=== PATIENT | female | born 1950 | race Caucasian/White ===

== ENCOUNTER 2016-11-26 11:04 | Observation (INO) | payer OTHER ==
[2016-11-26 11:05] VITALS: BP 140/51; PULSE 90; RESP 18; TEMP 97.6; O2SAT 96
[2016-11-26] MEDS ORDERED: SERT-129 PO (11:12)
[2016-11-26] MEDS ORDERED: MELO-1 PO (11:12)
[2016-11-26] MEDS ORDERED: LISI20TA PO (11:12)
[2016-11-26] MEDS ORDERED: BUSP15TA PO (11:13)
[2016-11-26] MEDS ORDERED: MELA1TAB18 PO (11:13)
[2016-11-26] MEDS ORDERED: ONDANSETRON HCL 4 MG/2 ML VIAL IVP ONE (11:30)
[2016-11-26] MEDS ORDERED: SODIUM CHLORIDE 0.9% FLUSH 10 ML FLUSH IV FLUSH PRN ×2 (11:30→17:45)
[2016-11-26 11:36] VITALS: O2SAT 97
[2016-11-26 11:43] LABS: AUTOMATED NEUTROPHIL # 8.4 TH/MM3 (1.8-7.7); BASOPHIL % 0.2 % (0.0-2.0); EOSINOPHIL % 0.3 % (0.0-4.0); HEMATOCRIT 43.4 % (35.0-46.0); HEMO FLAGS DIFF FINAL; LYMPH % 9.2 % (9.0-44.0); LYMPHOCYTE # 0.9 TH/MM3 (1.0-4.8); MEAN CELL VOLUME 84.6 FL (80.0-100.0); MEAN CORPUSCULAR HEMOGLOBIN 27.5 PG (27.0-34.0); MEAN CORPUSCULAR HGB CONC 32.5 % (32.0-36.0); MONO % 1.6 % (0.0-8.0); NEUT % 88.7 % (16.0-70.0); PLATELET COUNT 200 TH/MM3 (150-450); RED BLOOD COUNT 5.13 MIL/MM3 (4.00-5.30); RED CELL DISTRIBUTION WIDTH 14.7 % (11.6-17.2); WHITE BLOOD COUNT 9.5 TH/MM3 (4.0-11.0)
--- NOTE | 2016-11-26 11:43 | PD ---
HPI Chief Complaint: Abdominal Pain Time Seen by Provider: 11:39 Travel History International Travel<30 days: No Contact w/Intl Traveler<30days: No Traveled to known affect area: No History of Present Illness HPI 66-year-old female with history of previous cholecystectomy, gastritis, hypertension, presents to the ER today for onset of 10 out of 10 epigastric abdominal pain that started around 4 AM. She states she has been nauseous and vomiting. She denies any fevers, diarrhea, or any other symptoms. She does not know any exacerbating alleviating factors. Modifying Factors: None Associated Signs & Symptoms: Epigastric abdominal pain with nausea and vomiting Risk Factors: History of gastritis, cholecystectomy, PFSH Past Medical History Arthritis: Yes Depression: Yes High Cholesterol: Yes Hypertension: Yes Medical other: Yes (MRSA IN ABD WOUND) Past Surgical History Cholecystectomy: Yes Hysterectomy: Yes Tonsillectomy: Yes Social History Alcohol Use: No Tobacco Use: No Substance Use: No Allergies-Medications (Allergen,Severity, Reaction): Coded Allergies: Penicillin (Verified Allergy, Unknown, 11/26/16) Reported Meds & Prescriptions Reported Meds & Active Scripts Active Reported Melatonin 10 Mg Tab 10 Mg PO HS PRN Buspirone (Buspirone HCl) 15 Mg Tab 15 Mg PO TID Sertraline (Sertraline HCl) 100 Mg Tab 100 Mg PO BID Meloxicam 15 Mg Tab 15 Mg PO DAILY Lisinopril-Hctz 20-12.5 Mg Tab 1 Tab PO DAILY Review of Systems Except as stated in HPI: all other systems reviewed are Neg Physical Exam Narrative GENERAL: Well-developed elderly white female patient currently in moderate distress. Awake and oriented 3. SKIN: Focused skin assessment warm/dry. HEAD: Atraumatic. Normocephalic. EYES: Pupils equal and round. No scleral icterus. No injection or drainage. ENT: No nasal bleeding or discharge. Mucous membranes pink and moist. NECK: Trachea midline. No JVD. CARDIOVASCULAR: Regular rate and rhythm. No murmur appreciated. RESPIRATORY: No accessory muscle use. Clear to auscultation. Breath sounds equal bilaterally. GASTROINTESTINAL: Abdomen soft, epigastric tenderness without guarding or rebound, nondistended. Hepatic and splenic margins not palpable. MUSCULOSKELETAL: No obvious deformities. No clubbing. No cyanosis. No edema. NEUROLOGICAL: Awake and alert. No obvious cranial nerve deficits. Motor grossly within normal limits. Normal speech. PSYCHIATRIC: Appropriate mood and affect; insight and judgment normal. Data Data Last Documented VS Vital Signs Date Time Temp Pulse Resp B/P Pulse Ox O2 Delivery O2 Flow Rate FiO2 11/26/16 16:29 100 163/73 97 11/26/16 14:03 18 11/26/16 11:05 97.6 Orders Complete Blood Count With Diff (11/26/16 11:18) Comprehensive Metabolic Panel (11/26/16 11:18) Lipase (11/26/16 11:18) Urinalysis - C+S If Indicated (11/26/16 11:18) Iv Access Insert/Monitor (11/26/16 11:18) Ecg Monitoring (11/26/16 11:18) Oximetry (11/26/16 11:18) Ondansetron Inj (Zofran Inj) (11/26/16 11:30) Sodium Chloride 0.9% Flush (Ns Flush) (11/26/16 11:30) Electrocardiogram (11/26/16 11:18) Ct Abd/Pel W Iv Contrast(Rout) (11/26/16 11:40) Hydromorphone Pf Inj (Dilaudid Pf Inj) (11/26/16 11:45) Iohexol 350 Inj (Omnipaque 350 Inj) (11/26/16 12:52) Urine Culture (11/26/16 12:27) Dicyclomine Inj (Bentyl Inj) (11/26/16 13:30) Hydromorphone Pf Inj (Dilaudid Pf Inj) (11/26/16 13:45) Labs Laboratory Tests Test 11/26/16 11/26/16 11:26 12:27 White Blood Count 9.5 TH/MM3 Red Blood Count 5.13 MIL/MM3 Hemoglobin 14.1 GM/DL Hematocrit 43.4 % Mean Corpuscular Volume 84.6 FL Mean Corpuscular Hemoglobin 27.5 PG Mean Corpuscular Hemoglobin 32.5 % Concent Red Cell Distribution Width 14.7 % Platelet Count 200 TH/MM3 Mean Platelet Volume 8.4 FL Neutrophils (%) (Auto) 88.7 % Lymphocytes (%) (Auto) 9.2 % Monocytes (%) (Auto) 1.6 % Eosinophils (%) (Auto) 0.3 % Basophils (%) (Auto) 0.2 % Neutrophils # (Auto) 8.4 TH/MM3 Lymphocytes # (Auto) 0.9 TH/MM3 Monocytes # (Auto) 0.2 TH/MM3 Eosinophils # (Auto) 0.0 TH/MM3 Basophils # (Auto) 0.0 TH/MM3 CBC Comment DIFF FINAL Differential Comment Sodium Level 140 MEQ/L Potassium Level 3.7 MEQ/L Chloride Level 104 MEQ/L Carbon Dioxide Level 25.9 MEQ/L Anion Gap 10 MEQ/L Blood Urea Nitrogen 23 MG/DL Creatinine 0.83 MG/DL Estimat Glomerular Filtration 69 ML/MIN Rate Random Glucose 172 MG/DL Calcium Level 9.4 MG/DL Total Bilirubin 0.6 MG/DL Aspartate Amino Transf 18 U/L (AST/SGOT) Alanine Aminotransferase 19 U/L (ALT/SGPT) Alkaline Phosphatase 122 U/L Total Protein 7.9 GM/DL Albumin 3.9 GM/DL Lipase 87 U/L Urine Collection Type CLEAN CATCH Urine Color YELLOW Urine Turbidity SLIGHT Urine pH 5.5 Urine Specific [place] 1.022 Urine Protein 30 mg/dL Urine Glucose (UA) NEG mg/dL Urine Ketones 15 mg/dL Urine Occult Blood SMALL Urine Nitrite NEG Urine Bilirubin NEG Urine Leukocyte Esterase NEG Urine RBC 4-9 /hpf Urine WBC 0-2 /hpf Urine Squamous Epithelial > 8 /hpf Cells Urine Bacteria MOD /hpf Microscopic Urinalysis Comment CULTURE INDICATED Urine Collection Time 12:27 [facility] Medical Decision Making Medical Screen Exam Complete: Yes Emergency Medical Condition: Yes Medical Record Reviewed: Yes Interpretation(s) Laboratory Tests Test 11/26/16 11/26/16 11:26 12:27 Neutrophils (%) (Auto) 88.7 % (16.0-70.0) Neutrophils # (Auto) 8.4 TH/MM3 (1.8-7.7) Lymphocytes # (Auto) 0.9 TH/MM3 (1.0-4.8) Blood Urea Nitrogen 23 MG/DL (7-18) Estimat Glomerular Filtration 69 ML/MIN (>89) Rate Random Glucose 172 MG/DL (74-106) Alkaline Phosphatase 122 U/L (45-117) Urine Protein 30 mg/dL (NEG-TRACE) Urine Ketones 15 mg/dL (NEG) Urine Occult Blood SMALL (NEG) Urine RBC 4-9 /hpf (0-3) Urine Squamous Epithelial > 8 /hpf (0-5) Cells Urine Bacteria MOD /hpf (NONE) Differential Diagnosis Abdominal pain, nausea and vomitinggastritis versus gastroenteritis versus pancreatitis versus other acute intra-abdominal processes Narrative Course CAT scan shows acute obstruction and it appears that she has a possible strangulated hernia. Hernia was reduced in the ER by me. She felt some relief with the reduction. Case was discussed with Dr. Ford who came in to see the patient in the ER and elected to admit her for observation with medicine. He had discussed the case with Dr. Mei. Diagnosis Primary Impression: Obstructed ventral hernia Admitting Information Admitting Physician Requests: Admit Dave Echavarria MD Nov 26, 2016 11:43
[2016-11-26] MEDS ORDERED: HYDROmorphone HCL PF 1 MG/ML VIAL IV PUSH ONE ×2 (11:45→13:45)
[2016-11-26 11:52] LABS: CHLORIDE 104 MEQ/L (98-107); POTASSIUM 3.7 MEQ/L (3.5-5.1); SODIUM (NA) 140 MEQ/L (136-145)
[2016-11-26 11:55] LABS: ANION GAP 10 MEQ/L (5-15); BICARBONATE 25.9 MEQ/L (21.0-32.0); BLOOD UREA NITROGEN 23 MG/DL (7-18)
[2016-11-26 11:58] LABS: ALT (GPT) 19 U/L (10-53); AST (GOT) 18 U/L (15-37); GLOMERULAR FILTRATION RATE 69 ML/MIN (>89)
[2016-11-26 12:00] LABS: TOTAL BILIRUBIN ADULT 0.6 MG/DL (0.2-1.0)
[2016-11-26 12:01] LABS: ALKALINE PHOSPHATASE 122 U/L (45-117)
[2016-11-26 12:34] LABS: BLOOD, URINE SMALL (NEG); GLUCOSE,URINE NEG (NEG); KETONE, URINE 15 mg/dL (NEG); NITRITE,URINE NEG (NEG); PH, URINE 5.5 (5.0-8.5)
[2016-11-26] MEDS ORDERED: IOHEXOL 350 MG/ML 10 ML VIAL (for RAD DIAG) IV ONE (12:52)
[2016-11-26 12:56] LABS: METHOD OF COLLECTION CLEAN CATCH
[2016-11-26 12:57] LABS: URINE COLOR YELLOW (YELLW/STRAW)
[2016-11-26 12:58] LABS: BACTERIA, URINE MOD /hpf; COMMENT (UR) CULTURE INDICATED; CULTURE IF INDICATED CULTURE INDICATED; SQUAMOUS EPITHELIAL CELL URINE > 8 /hpf (0-5); WBC, URINE 0-2 /hpf (0-5)
[2016-11-26] MEDS ORDERED: DICYCLOMINE HCL 20 MG/2 ML VIAL IM ONE (13:30)
--- NOTE | 2016-11-26 13:34 | RADHPO ---
EXAM DATE/TIME: 11/26/2016 12:35 [facility] COMPARISON: No previous studies available for comparison. INDICATIONS : Epigastric pain. Nausea and vomiting. IV CONTRAST: 90 cc Omnipaque 350 (iohexol) IV ORAL CONTRAST: No oral contrast ingested. RADIATION DOSE: 26.75 CTDIvol (mGy) MEDICAL HISTORY : Hypertension. Gastritis. SURGICAL HISTORY : Cholecystectomy. Hysterectomy. ENCOUNTER: Initial ACUITY: 1 day PAIN SCALE: 10/10 LOCATION: Epigastric. TECHNIQUE: Volumetric scanning of the abdomen and pelvis was performed. Using automated exposure control and ad justment of the mA and/or kV according to patient size, radiation dose was kept as low as reasonably achievable to obtain optimal diagnostic quality images. FINDINGS: There is evidence of small bowel obstruction likely secondary to ventral abdominal wall hernia which contains a loop of small bowel which appears possibly strangulated. Fluid is noted within this herni a in addition to the pinched loop. A smaller fat-containing ventral abdominal wall hernia is noted m ore inferiorly also. Clinical correlation is recommended. Hepatosplenomegaly is noted. No focal he patic mass is noted. No biliary ductal dilatation is noted. The gallbladder has been resected. No focal splenic mass is noted. Scattered calcified granulomas are noted within the liver and spleen. The pancreas is normal. The adrenal glands are normal bilaterally. The kidneys enhance briskly and demonstrate no evidence of focal mass or hydronephrosis. The abdominal aorta is calcified but is not aneurysmally dilated. The inferior vena cava is normal. No paraaortic, retroperitoneal or mesenter ic lymphadenopathy is noted. No colonic obstruction is noted. A portion of the right colon appears to be noted within the ventral abdominal wall hernia also but no definite colonic obstruction is conf irmed. The urinary bladder is unremarkable. Uncomplicated sigmoid diverticulosis is noted. Degener ative changes and scoliosis of the thoracolumbar spine are noted. CONCLUSION: 1. Multiple fluid-filled dilated loops of small bowel suggesting small bowel obstruction likely rela yosef to a loop of small bowel located within a ventral abdominal wall hernia which appears to be pinch ed at the defect raising the possibility of strangulation. There is fluid within this hernia also as well as a portion of the right colon which is not obstructed. 2. Second ventral abdominal wall hernia is noted more inferiorly but only contains fat. 3. Hepatosplenomegaly. 4. Degenerative changes and scoliosis of the thoracolumbar spine. Sami Rodriguez MD on November 26, 2016 at 13:15 Board Certified Radiologist. This report was verified electronically.
[2016-11-26 14:03] VITALS: BP 159/95; PULSE 102; RESP 18; O2SAT 94
--- NOTE | 2016-11-26 14:19 | EKG ---
Date Performed: 11/26/2016 Time Performed: 11:31:08 PTAGE: 66 years EKG: Sinus rhythm NORMAL ECG NO PREVIOUS TRACING DOCTOR: Polo Beck Interpretating Date/Time 11/26/2016 14:17:38
[2016-11-26 16:29] VITALS: BP 163/73; PULSE 100; O2SAT 97
--- NOTE | 2016-11-26 17:20 | PD.CONS ---
cc: Fidencio Ford MD [facility] Service General Surgery Consult Requested By Dr. Echavarria Reason for Consult Ventral Hernia Primary Care Physician Paulo Hargrove M.D. History of Present Illness This is a 66 year old female with a past medical history of gastritis and hypertension who developed severe 10/10 abdominal pain at approximately 0400 today. Located in mid abdomen, sharp, radiating diffusely, worse with movement. She had associated nausea and one episode of vomiting. Her last normal bowel movement was yesterday. She denies any sick contacts. She reports + flatus and burping. She came to the ED for evaluation of severe abdominal pain. A CT was completed which showed a ventral hernia with possible bowel and a second inferior hernia which only contains fat. The inferior hernia is easily reducible. A General Surgery consultation has been requested. Review of Systems Constitutional: DENIES: Fatigue, Fever, Chills Endocrine: DENIES: Polydipsia, Polyuria, Polyphagia Eyes: DENIES: Blurred vision Ears, nose, mouth, throat: DENIES: Tinnitus Respiratory: DENIES: Apneas, Cough Cardiovascular: DENIES: Chest pain, Syncope Gastrointestinal: COMPLAINS OF: Abdominal pain, Nausea, Vomiting Genitourinary: DENIES: Urinary frequency Musculoskeletal: DENIES: Joint pain Integumentary: DENIES: Abnormal pigmentation Hematologic/lymphatic: DENIES: Bruising Immunologic/allergic: DENIES: Eczema Neurologic: DENIES: Localized weakness, Paresthesias Psychiatric: DENIES: Anxiety, Confusion, Mood changes Past Family Social History Past Medical History Arthritis Gastris Hypertension Past Surgical History AMBER (with MRSA infection in wound) Total knee replacement (LEFT) Open cholecystectomy Tonsillectomy Reported Medications Melatonin Buspirone Sertraline Meloxicam Lisinopril-Hctz Allergies: Coded Allergies: Penicillin (Verified Allergy, Unknown, 11/26/16) Active Ordered Medications Current Medications Medications (Trade) Dose Ordered Sig/J Carlos Route Start Time Stop Time Status Last Admin (NS Flush) 2 ml UNSCH PRN IV FLUSH 11/26/16 11:30 Family History Noncontributory Social History Denies tobacco use Denies ETOH use Denies illicit drug use Physical Exam Vital Signs Vital Signs Date Time Temp Pulse Resp B/P Pulse Ox O2 Delivery O2 Flow Rate FiO2 11/26/16 16:29 100 163/73 97 11/26/16 14:03 102 18 159/95 94 11/26/16 11:36 97 11/26/16 11:05 97.6 90 18 140/51 96 Physical Exam GENERAL: Pleasant 66 year old female resting in bed in no acute distress. SKIN: Warm and dry. HEAD: Atraumatic. Normocephalic. EYES: Pupils equal and round. No scleral icterus. No injection or drainage. ENT: No nasal bleeding or discharge. Mucous membranes pink and moist. NECK: Trachea midline. CARDIOVASCULAR: Regular rate and rhythm. RESPIRATORY: No accessory muscle use. Clear to auscultation. Breath sounds equal bilaterally. GASTROINTESTINAL: Abdomen soft, tender in epigastric region with palpation; inferior hernia freely reducible. MUSCULOSKELETAL: Extremities without clubbing, cyanosis, or edema. No obvious deformities. NEUROLOGICAL: Awake and alert. No obvious cranial nerve deficits. Motor grossly within normal limits. Five out of 5 muscle strength in the arms and legs. Normal speech. PSYCHIATRIC: Appropriate mood and affect; insight and judgment normal. Laboratory Laboratory Tests Test 11/26/16 11/26/16 11:26 12:27 White Blood Count 9.5 Red Blood Count 5.13 Hemoglobin 14.1 Hematocrit 43.4 Mean Corpuscular Volume 84.6 Mean Corpuscular Hemoglobin 27.5 Mean Corpuscular Hemoglobin 32.5 Concent Red Cell Distribution Width 14.7 Platelet Count 200 Mean Platelet Volume 8.4 Neutrophils (%) (Auto) 88.7 Lymphocytes (%) (Auto) 9.2 Monocytes (%) (Auto) 1.6 Eosinophils (%) (Auto) 0.3 Basophils (%) (Auto) 0.2 Neutrophils # (Auto) 8.4 Lymphocytes # (Auto) 0.9 Monocytes # (Auto) 0.2 Eosinophils # (Auto) 0.0 Basophils # (Auto) 0.0 CBC Comment DIFF FINAL Differential Comment Sodium Level 140 Potassium Level 3.7 Chloride Level 104 Carbon Dioxide Level 25.9 Anion Gap 10 Blood Urea Nitrogen 23 Creatinine 0.83 Estimat Glomerular Filtration 69 Rate Random Glucose 172 Calcium Level 9.4 Total Bilirubin 0.6 Aspartate Amino Transf 18 (AST/SGOT) Alanine Aminotransferase 19 (ALT/SGPT) Alkaline Phosphatase 122 Total Protein 7.9 Albumin 3.9 Lipase 87 Urine Collection Type CLEAN CATCH Urine Color YELLOW Urine Turbidity SLIGHT Urine pH 5.5 Urine Specific [place] 1.022 Urine Protein 30 Urine Glucose (UA) NEG Urine Ketones 15 Urine Occult Blood SMALL Urine Nitrite NEG Urine Bilirubin NEG Urine Leukocyte Esterase NEG Urine RBC 4-9 Urine WBC 0-2 Urine Squamous Epithelial > 8 Cells Urine Bacteria MOD Microscopic Urinalysis Comment CULTURE INDICATED Urine Collection Time 12:27 Date/Time Procedure Status Source Growth 11/26/16 12:27 Urine Culture Received Urine Clean Catch Pending Assessment and Plan Assessment and Plan 66 year old female with abdominal pain; CT abd pelvis obtained and shows ventral hernia with possible bowel and a second inferior hernia which only contains fat -Start clear liquids; NPO after MN -Pain control -Labs in AM -Will monitor overnight; if pain resolved and tolerating clear liquids will advance diet and send home and have patient follow up for possible elective repair -If she does not tolerate clears, fever occurs, and/or elevated WBC or lactate acid will have to preform inpatient repair of hernia -Thank you for this consult -We will continue to follow along with you Discussed Condition With Dr. Logan Brewer Attending Statement patient seen at bedside ventral hernia s/p reduction in ed will admit for obs and monitor to r/o bowel necrosis Attestation The exam, history, and the medical decision-making described in the above note were completed with the assistance of the mid-level provider. I reviewed and agree with the findings presented. I attest that I had a [id number] encounter with the patient on the same day, and personally performed and documented my assessment and findings in the medical record. Cindy Smalls Nov 26, 2016 17:20 Fidencio Ford MD Dec 04, 2016 18:52
[2016-11-26] MEDS ORDERED: LACTULOSE SYRUP 20 GM/30 ML CUP PO PRN (17:45)
[2016-11-26] MEDS ORDERED: BISACODYL 10 MG SUPP RECTAL PRN (17:45)
[2016-11-26] MEDS ORDERED: SENNOSIDES 8.6 MG TAB PO PRN (17:45)
[2016-11-26] MEDS ORDERED: MAGNESIUM HYDROXIDE SUSP 30 ML CUP PO PRN (17:45)
[2016-11-26] MEDS ORDERED: ONDANSETRON HCL 4 MG/2 ML VIAL IVP PRN (17:45)
[2016-11-26] MEDS ORDERED: HYDROmorphone HCL PF 1 MG/ML VIAL IV PRN ×2 (17:45)
[2016-11-26] MEDS ORDERED: ACETAMINOPHEN 325 MG TAB PO PRN ×2 (17:45)
[2016-11-26] MEDS ORDERED: NALOXONE HCL 0.4 MG/ML AMP IV PRN (17:45)
[2016-11-26 20:00] VITALS: BP 193/65; PULSE 104; RESP 18; TEMP 97.3; O2SAT 94
[2016-11-26] MEDS: SODIUM CHLORIDE 0.9% FLUSH 10 ML FLUSH IV FLUSH SCH (20:49)
[2016-11-26] MEDS: DOCUSATE SODIUM 50 MG/SENNA 8.6 MG TAB PO SCH (20:50)
[2016-11-27] VITALS: BP 141/61; PULSE 100; RESP 18; TEMP 98.1; O2SAT 95
[2016-11-27 06:21] LABS: HEMATOCRIT 36.6 % (35.0-46.0); MEAN CELL VOLUME 84.6 FL (80.0-100.0); MEAN CORPUSCULAR HEMOGLOBIN 28.3 PG (27.0-34.0); MEAN CORPUSCULAR HGB CONC 33.5 % (32.0-36.0); PLATELET COUNT 189 TH/MM3 (150-450); RED BLOOD COUNT 4.32 MIL/MM3 (4.00-5.30); RED CELL DISTRIBUTION WIDTH 14.7 % (11.6-17.2); REVIEW FLAG FINAL; WHITE BLOOD COUNT 8.5 TH/MM3 (4.0-11.0)
[2016-11-27 06:31] LABS: CHLORIDE 104 MEQ/L (98-107); POTASSIUM 3.7 MEQ/L (3.5-5.1); SODIUM (NA) 141 MEQ/L (136-145)
[2016-11-27 06:42] LABS: ALKALINE PHOSPHATASE 95 U/L (45-117); ALT (GPT) 16 U/L (10-53); ANION GAP 6 MEQ/L (5-15); AST (GOT) 17 U/L (15-37); BICARBONATE 30.6 MEQ/L (21.0-32.0); BLOOD UREA NITROGEN 14 MG/DL (7-18); GLOMERULAR FILTRATION RATE 75 ML/MIN (>89); TOTAL BILIRUBIN ADULT 0.6 MG/DL (0.2-1.0)
[2016-11-27 08:00] VITALS: BP 159/79; PULSE 79; RESP 20; TEMP 97.2; O2SAT 93
--- NOTE | 2016-11-27 08:15 | HHI.PR ---
Subjective Subjective Notes Resting in bed C/o headache Pain controlled Thirsty Objective Vitals/I&O Vital Signs Date Time Temp Pulse Resp B/P Pulse Ox O2 Delivery O2 Flow Rate FiO2 11/27/16 00:00 98.1 100 18 141/61 95 Labs Laboratory Tests Test 11/26/16 11/26/16 11/27/16 11:26 12:27 05:30 White Blood Count 9.5 8.5 Red Blood Count 5.13 4.32 Hemoglobin 14.1 12.2 Hematocrit 43.4 36.6 Mean Corpuscular Volume 84.6 84.6 Mean Corpuscular Hemoglobin 27.5 28.3 Mean Corpuscular Hemoglobin 32.5 33.5 Concent Red Cell Distribution Width 14.7 14.7 Platelet Count 200 189 Mean Platelet Volume 8.4 8.8 Neutrophils (%) (Auto) 88.7 Lymphocytes (%) (Auto) 9.2 Monocytes (%) (Auto) 1.6 Eosinophils (%) (Auto) 0.3 Basophils (%) (Auto) 0.2 Neutrophils # (Auto) 8.4 Lymphocytes # (Auto) 0.9 Monocytes # (Auto) 0.2 Eosinophils # (Auto) 0.0 Basophils # (Auto) 0.0 CBC Comment DIFF FINAL Differential Comment Sodium Level 140 141 Potassium Level 3.7 3.7 Chloride Level 104 104 Carbon Dioxide Level 25.9 30.6 Anion Gap 10 6 Blood Urea Nitrogen 23 14 Creatinine 0.83 0.77 Estimat Glomerular Filtration 69 75 Rate Random Glucose 172 135 Calcium Level 9.4 8.5 Total Bilirubin 0.6 0.6 Aspartate Amino Transf 18 17 (AST/SGOT) Alanine Aminotransferase 19 16 (ALT/SGPT) Alkaline Phosphatase 122 95 Total Protein 7.9 6.3 Albumin 3.9 3.1 Lipase 87 Urine Collection Type CLEAN CATCH Urine Color YELLOW Urine Turbidity SLIGHT Urine pH 5.5 Urine Specific [place] 1.022 Urine Protein 30 Urine Glucose (UA) NEG Urine Ketones 15 Urine Occult Blood SMALL Urine Nitrite NEG Urine Bilirubin NEG Urine Leukocyte Esterase NEG Urine RBC 4-9 Urine WBC 0-2 Urine Squamous Epithelial > 8 Cells Urine Bacteria MOD Microscopic Urinalysis Comment CULTURE INDICATED Urine Collection Time 12:27 Lactic Acid Level 0.9 Date/Time Procedure Status Source Growth 11/26/16 12:27 Urine Culture Received Urine Clean Catch Pending Cardiovascular: Regular Lungs: Clear Abdomen: Other (obese abdomen; tenderness with palpation in epigastric region ( mild); small budge palpated inferior to umbilicus--minimally tender with palpation ) Extremities: No edema A/P Assessment and Plan 66 year old female with abdominal pain; CT abd pelvis obtained and shows ventral hernia with possible bowel and a second inferior hernia which only contains fat -Start regular diet -Labs reviewed; normal WBC and LA -VSS; hypertensive -Restarted home meds -If tolerates breakfast and lunch; okay to DC home from GS standpoint and follow up in the office for elective hernia repair -I gave her our office information -Discussed plan with Dr. Ford Attending Statement patient seen at bedside c/o lucas, otherwise doing well labs normal Attestation The exam, history, and the medical decision-making described in the above note were completed with the assistance of the mid-level provider. I reviewed and agree with the findings presented. I attest that I had a [id number] encounter with the patient on the same day, and personally performed and documented my assessment and findings in the medical record. Cindy Smalls Nov 27, 2016 08:15 Fidencio Ford MD Dec 04, 2016 23:15
[2016-11-27] MEDS: SODIUM CHLORIDE 0.9% FLUSH 10 ML FLUSH IV FLUSH SCH (08:43)
[2016-11-27] MEDS: busPIRone HCL 5 MG TAB PO SCH ×2 (08:43→12:02)
[2016-11-27] MEDS: DOCUSATE SODIUM 50 MG/SENNA 8.6 MG TAB PO SCH (08:43)
[2016-11-27] MEDS ORDERED: LISINOPRIL 20 MG TAB PO SCH (09:00)
[2016-11-27] MEDS ORDERED: MELOXICAM 15 MG TAB PO SCH (09:00)
[2016-11-27] MEDS ORDERED: SERTRALINE HCL 100 MG TAB PO SCH (09:00)
[2016-11-27] MEDS ORDERED: HYDROCHLOROTHIAZIDE 12.5 MG CAP PO SCH (09:00)
--- NOTE | 2016-11-27 10:10 | HHI.HP ---
[facility] Service [facility] Primary Care Physician Paulo Hargrove M.D. Admission Diagnosis ventral hernia/reduced in the ER Diagnoses: (1) Obstructed ventral hernia Chief Complaint: Abdominal pain Travel History International Travel<30 Days: No Contact w/Intl Traveler <30 Da: No Traveled to Known Affected Are: No History of Present Illness The patient is a 66-year-old female who presented to emergency department yesterday with complaint of severe abdominal pain that awakened her from sleep. She did have one episode of vomiting and has had nausea. The pain was reportedly 10/10. It is much better today. She had a ventral hernia reduced in the ER. Last bowel movement was 2 days ago. She does report flatus. Review of Systems Constitutional: DENIES: Fever, Chills, Night Sweats Eyes: DENIES: Blurred vision, Vision loss Ears, nose, mouth, throat: DENIES: Hearing loss Respiratory: DENIES: Cough, Wheezing, Sputum production, Shortness of breath Cardiovascular: DENIES: Chest pain, Palpitations, Dyspnea on Exertion, Lower Extremity Edema Gastrointestinal: COMPLAINS OF: Abdominal pain, DENIES: Constipation, Diarrhea , Nausea, Vomiting Genitourinary: DENIES: Urinary frequency, Urinary incontinence, Urgency, Hematuria, Dysuria, Nocturia Musculoskeletal: DENIES: Joint pain, Muscle aches Integumentary: DENIES: Pruritus, Rash Hematologic/lymphatic: DENIES: Bruising Neurologic: DENIES: Headache Past Family Social History Past Medical History Hypertension Gastritis Arthritis Hyperlipidemia Past Surgical History Hysterectomy Left total knee replacement Cholecystectomy Tonsillectomy section Reported Medications Melatonin 10 Mg Tab 10 Mg PO HS PRN Buspirone (Buspirone HCl) 15 Mg Tab 15 Mg PO TID Sertraline (Sertraline HCl) 100 Mg Tab 100 Mg PO BID Meloxicam 15 Mg Tab 15 Mg PO DAILY Lisinopril-Hctz 20-12.5 Mg Tab 1 Tab PO DAILY Allergies: Coded Allergies: Penicillin (Verified Allergy, Unknown, 11/26/16) Family History Diabetes Heart disease Social History Denies alcohol, tobacco, or illicit drug use. Physical Exam Vital Signs Vital Signs Date Time Temp Pulse Resp B/P Pulse Ox O2 Delivery O2 Flow Rate FiO2 11/27/16 08:00 97.2 79 20 159/79 93 11/27/16 00:00 98.1 100 18 141/61 95 11/26/16 20:00 97.3 104 18 193/65 94 11/26/16 16:29 100 163/73 97 11/26/16 14:03 102 18 159/95 94 11/26/16 11:36 97 11/26/16 11:05 97.6 90 18 140/51 96 Physical Exam GENERAL: Obese female in no acute distress. HEENT: Normocephalic, atraumatic. Pupils equal, round and reactive. Extraocular movements intact. No scleral icterus. No injection or drainage. Oropharynx is clear. Mucous membranes are moist. CARDIOVASCULAR: Regular rate and rhythm without murmurs, gallops, or rubs. RESPIRATORY: Clear to auscultation. No wheezes, rales, or rhonchi. Breathing is non-labored. GASTROINTESTINAL: Obese. Mildly tender in the midepigastric region. Hernia noted below the knee umbilicus. EXTREMITIES: No lower extremity edema. No calf tenderness. PSYCH: Alert and oriented x 3. Laboratory Laboratory Tests Test 11/26/16 11/26/16 11/27/16 11:26 12:27 05:30 White Blood Count 9.5 8.5 Red Blood Count 5.13 4.32 Hemoglobin 14.1 12.2 Hematocrit 43.4 36.6 Mean Corpuscular Volume 84.6 84.6 Mean Corpuscular Hemoglobin 27.5 28.3 Mean Corpuscular Hemoglobin 32.5 33.5 Concent Red Cell Distribution Width 14.7 14.7 Platelet Count 200 189 Mean Platelet Volume 8.4 8.8 Neutrophils (%) (Auto) 88.7 Lymphocytes (%) (Auto) 9.2 Monocytes (%) (Auto) 1.6 Eosinophils (%) (Auto) 0.3 Basophils (%) (Auto) 0.2 Neutrophils # (Auto) 8.4 Lymphocytes # (Auto) 0.9 Monocytes # (Auto) 0.2 Eosinophils # (Auto) 0.0 Basophils # (Auto) 0.0 CBC Comment DIFF FINAL Differential Comment Sodium Level 140 141 Potassium Level 3.7 3.7 Chloride Level 104 104 Carbon Dioxide Level 25.9 30.6 Anion Gap 10 6 Blood Urea Nitrogen 23 14 Creatinine 0.83 0.77 Estimat Glomerular Filtration 69 75 Rate Random Glucose 172 135 Calcium Level 9.4 8.5 Total Bilirubin 0.6 0.6 Aspartate Amino Transf 18 17 (AST/SGOT) Alanine Aminotransferase 19 16 (ALT/SGPT) Alkaline Phosphatase 122 95 Total Protein 7.9 6.3 Albumin 3.9 3.1 Lipase 87 Urine Collection Type CLEAN CATCH Urine Color YELLOW Urine Turbidity SLIGHT Urine pH 5.5 Urine Specific Thermal 1.022 Urine Protein 30 Urine Glucose (UA) NEG Urine Ketones 15 Urine Occult Blood SMALL Urine Nitrite NEG Urine Bilirubin NEG Urine Leukocyte Esterase NEG Urine RBC 4-9 Urine WBC 0-2 Urine Squamous Epithelial > 8 Cells Urine Bacteria MOD Microscopic Urinalysis Comment CULTURE INDICATED Urine Collection Time 12:27 Lactic Acid Level 0.9 Date/Time Procedure Status Source Growth 11/26/16 12:27 Urine Culture Received Urine Clean Catch Pending Result Diagram: 11/27/16 0530 11/27/16 0530 Imaging Last Impressions Abdomen/Pelvis CT 11/26/16 1140 Signed Impressions: Service Date/Time: Thursday, November 26, 2016 12:35 - CONCLUSION: 1. Multiple fluid-filled dilated loops of small bowel suggesting small bowel obstruction likely related to a loop of small bowel located within a ventral abdominal wall hernia which appears to be pinched at the defect raising the possibility of strangulation. There is fluid within this hernia also as well as a portion of the right colon which is not obstructed. 2. Second ventral abdominal wall hernia is noted more inferiorly but only contains fat. 3. Hepatosplenomegaly. 4. Degenerative changes and scoliosis of the thoracolumbar spine. Sami Rodriguez MD Assessment and Plan Assessment and Plan 1. Ventral hernia: This was reduced in the ER. Patient has been evaluated by general surgery. If she tolerates regular diet, she is cleared for discharge home by surgery. 2. Abdominal pain: Likely secondary to above. Improved today. 3. Hypertension: Continue home medications. Possible discharge home later today if patient tolerates diet. Jr Mei MD Nov 27, 2016 10:10
[2016-11-27 12:00] VITALS: BP 128/63; PULSE 71; RESP 20; TEMP 97.3; O2SAT 95
--- NOTE | 2016-11-27 14:39 | HHI.DCPOC ---
Discharge Care Plan Diagnosis: (1) Obstructed ventral hernia (2) Hypertension Goals to Promote Your Health * To prevent worsening of your condition and complications * To maintain your health at the optimal level Directions to Meet Your Goals Take your medications as prescribed Follow your dietary instruction Follow activity as directed Keep your appointments as scheduled Take your immunizations and boosters as scheduled If your symptoms worsen call your PCP, if no PCP go to Urgent Care Center or Emergency Room Smoking is Dangerous to Your Health. Avoid second hand smoke Call the 24-hour hour crisis hotline for domestic abuse at Jr Mei MD Nov 27, 2016 14:39
[2016-11-27] MEDS ORDERED: MELATONIN 5 MG TAB PO PRN (21:00)
== END 2016-11-27 15:18 | disposition home or self-care (01) ==
LOC: PHED 11:04 → PHEDA 16:57 → INTOOBSV 16:57 → PH3B 17:55
PROVIDERS: ADMIT Family Medicine; ATTEND Family Medicine
DX: K43.6 Other and unspecified ventral hernia with obstruction, without gangrene (principal); I10 Essential (primary) hypertension; F32.9 Major depressive disorder, single episode, unspecified; Z96.652 Presence of left artificial knee joint; Z88.0 Allergy status to penicillin
CPT/HCPCS: 74177; 80053; 81001; 83605; 83690; 85025; 85027; 87086; 93005; 96374; 96375; 96376; 99285; G0378; J1170; J2405; Q9967

== ENCOUNTER 2017-01-20 10:55 | Inpatient (IN) | payer OTHER, MEDICARE ==
[~2017-01-20] VITALS: Ht 162.6 cm; Wt 151.4 kg
[2017-01-20] MEDS: PCA - TOTAL MG MORPHINE DELIVERED PER SHIFT SCH ×2 (06:00→22:00)
[~2017-01-20 10:55] MED LIST: ASPI-110 PO; ATOR10TA15 PO; LISI20TA PO; MELA1TAB18 PO; MELO-1 PO; MULT-65 PO; SERT-129 PO
[2017-01-20 11:40] VITALS: BP 127/65; PULSE 86; RESP 18; TEMP 98.9; O2SAT 96
[2017-01-20] MEDS ORDERED: ePHEDrine/NS 25 MG/5 ML SYR IV ONE (12:00)
[2017-01-20] MEDS ORDERED: VANCOMYCIN HCL 1000 MG ON-CALL/NS 250 ML IV SCH ×2 (12:00)
[2017-01-20] MEDS ORDERED: METOPROLOL TARTRATE 25 MG TAB PO PRN (12:00)
[2017-01-20] MEDS ORDERED: ONDANSETRON HCL 4 MG/2 ML VIAL IV PUSH ONE (12:00)
[2017-01-20] MEDS ORDERED: PROPOFOL 200 MG/20 ML AMP IV ONE (12:00)
[2017-01-20] MEDS ORDERED: LACTATED RINGER'S 1000 ML IV PRN (12:00)
[2017-01-20] MEDS ORDERED: PHENYLEPH/NS 1000 MCG/10 ML SYR IV ONE (12:00)
[2017-01-20] MEDS ORDERED: POVIDONE IODINE 5% (ANTISEPSIS KIT) 4 APPLICATIONS EACH NARE PRN (12:00)
[2017-01-20] MEDS ORDERED: SODIUM CHLORID 0.9% 500 ML IV PRN (12:00)
[2017-01-20] MEDS ORDERED: INSULIN HUMAN REGULAR 1,000 UNITS/10 ML VIAL SQ PRN (12:00)
[2017-01-20] MEDS ORDERED: CHLORHEXIDINE GLUCONATE 2 % 1 PACK (2 CLOTHS) TOPICAL PRN (12:00)
[2017-01-20] MEDS ORDERED: LACTATED RINGER'S 1000 ML INJ 1,000 ML IV ONE (12:00)
[2017-01-20 12:09] LABS: AUTOMATED NEUTROPHIL # 4.7 TH/MM3 (1.8-7.7); BASOPHIL % 0.4 % (0.0-2.0); EOSINOPHIL # 0.1 TH/MM3 (0-0.4); EOSINOPHIL % 1.6 % (0.0-4.0); HEMATOCRIT 41.6 % (35.0-46.0); HEMO FLAGS DIFF FINAL; LYMPH % 23.8 % (9.0-44.0); LYMPHOCYTE # 1.7 TH/MM3 (1.0-4.8); MEAN CELL VOLUME 85.4 FL (80.0-100.0); MEAN CORPUSCULAR HEMOGLOBIN 27.9 PG (27.0-34.0); MEAN CORPUSCULAR HGB CONC 32.6 % (32.0-36.0); MONO % 7.7 % (0.0-8.0); NEUT % 66.5 % (16.0-70.0); PLATELET COUNT 194 TH/MM3 (150-450); RED BLOOD COUNT 4.87 MIL/MM3 (4.00-5.30); RED CELL DISTRIBUTION WIDTH 14.6 % (11.6-17.2)
[2017-01-20] MEDS ORDERED: LIDOCAINE HCL 1% 50 ML VIAL ONE (12:31)
[2017-01-20 12:35] LABS: BICARBONATE 28.5 MEQ/L (21.0-32.0); POTASSIUM 4.2 MEQ/L (3.5-5.1)
[2017-01-20] MEDS ORDERED: EXPAREL PERI-ARTICULAR INJECTION (TOTAL VOL. 100 ML) P-ARTICULR SCH ×2 (14:15)
[2017-01-20] MEDS ORDERED: SUGAMMADEX SODIUM 200 MG/2 ML VIAL IV PUSH ONE ×2 (15:59)
--- NOTE | 2017-01-20 16:42 | HHI.PR ---
Immediate Post Op Note Procedure Date: Jan 20, 2017 Pre Op Diagnosis: incisional hernia Post Op Diagnosis: same, with incarcerated small bowel and omentum Surgeon: Fidencio Ford MD Mattress Filling Machine Tender(s): Dr. Gonzalez needed due to the complexity of the open case. Procedure: open incisional hernia repair x2 placement of rectorectus polypropylene mesh 15x21 removal of skin and subcutaneous tissue complex modified abdominoplasty [id number] abdominal wall reconstruction with modified compoments separation Placement of jana dressing Findings: hernia with incarcerated small bowel omentum and appendix Complications: none Specimen(s) removed: none Estimated blood loss: 40cc Anesthesia: General Drains: None Patient to: PACU Patient Condition: Good Fidencio Ford MD Jan 20, 2017 16:42
[2017-01-20] MEDS ORDERED: NALOXONE HCL 0.4 MG/ML AMP IV PRN (16:45)
[2017-01-20] MEDS ORDERED: ACETAMINOPHEN/HYDROcodone 325 MG/5 MG TAB PO PRN (16:45)
[2017-01-20] MEDS ORDERED: ONDANSETRON HCL 4 MG/2 ML VIAL IV PRN (16:45)
[2017-01-20] MEDS ORDERED: diphenhydrAMINE HCL 25 MG CAP PO PRN (16:45)
[2017-01-20] MEDS ORDERED: SODIUM CHLORIDE 0.9% FLUSH 10 ML FLUSH IV FLUSH PRN (16:45)
[2017-01-20] MEDS ORDERED: Post-op Orders (for Pharmacy) MISC XX ONE (16:45)
[2017-01-20] MEDS ORDERED: MIDAZOLAM HCL 2 MG/2 ML VIAL ONE (16:52)
[2017-01-20] MEDS ORDERED: fentaNYL CITRATE 250 MCG/5 ML AMP ONE (16:52)
[2017-01-20] MEDS ORDERED: *morphine SULFATE 8 MG/ML PERIprocedure ONLY ONE ×3 (16:59→17:13)
[2017-01-20] MEDS: SODIUM CHLOR 0.9% 1000 ML INJ 1,000 ML IV SCH (17:00)
[2017-01-20] MEDS ORDERED: *HYDROmorphone PF 1 MG VIAL PERIprocedural Use ONLY ONE ×2 (17:29→17:43)
[2017-01-20] MEDS: MORPHINE SULFATE 30 MG/30 ML PCA IV SCH (18:30)
[2017-01-20 18:42] VITALS: BP 138/63; PULSE 91; RESP 20; TEMP 97.6; O2SAT 93
[2017-01-20] MEDS ORDERED: GLUCAGON 1 MG/ML VIAL OTHER PRN (19:30)
[2017-01-20] MEDS ORDERED: DEXTROSE 50% IN WATER 50 ML VIAL(D50) IV PUSH PRN (19:30)
[2017-01-20 20:00] VITALS: BP 118/58; PULSE 95; RESP 20; TEMP 97.1; O2SAT 95
[2017-01-20] MEDS: SODIUM CHLORIDE 0.9% FLUSH 10 ML FLUSH IV FLUSH SCH (21:00)
[2017-01-20] MEDS: INSULIN ASPART SUPPLEMENTAL SCALE SQ SCH (21:00)
[2017-01-20] MEDS: DOCUSATE SODIUM 100 MG CAP PO SCH (23:09)
[2017-01-21] VITALS (10 sets, daily range): BP systolic 90–121; BP diastolic 49–57; PULSE 86–99; RESP 16–22; TEMP 95.6–97.8; O2SAT 93–100
[2017-01-21] MEDS: CLINDAMYCIN INJ 600 MG in SODIUM CHLORIDE 0.9% INJ 50 ML IV SCH ×2 (02:11→11:14)
[2017-01-21] MEDS: PCA - TOTAL MG MORPHINE DELIVERED PER SHIFT SCH ×3 (06:00→21:04)
[2017-01-21] MEDS: INSULIN ASPART SUPPLEMENTAL SCALE SQ SCH ×4 (07:00→21:00)
[2017-01-21 07:17] LABS: AUTOMATED NEUTROPHIL # 11.3 TH/MM3 (1.8-7.7); BASOPHIL % 0.1 % (0.0-2.0); EOSINOPHIL % 0.1 % (0.0-4.0); HEMATOCRIT 37.7 % (35.0-46.0); HEMO FLAGS DIFF FINAL; LYMPH % 10.1 % (9.0-44.0); LYMPHOCYTE # 1.4 TH/MM3 (1.0-4.8); MEAN CELL VOLUME 85.9 FL (80.0-100.0); MEAN CORPUSCULAR HEMOGLOBIN 28.1 PG (27.0-34.0); MEAN CORPUSCULAR HGB CONC 32.6 % (32.0-36.0); NEUT % 82.7 % (16.0-70.0); PLATELET COUNT 220 TH/MM3 (150-450); RED BLOOD COUNT 4.38 MIL/MM3 (4.00-5.30); RED CELL DISTRIBUTION WIDTH 15.3 % (11.6-17.2); WHITE BLOOD COUNT 13.7 TH/MM3 (4.0-11.0)
[2017-01-21 07:29] LABS: BICARBONATE 25.4 MEQ/L (21.0-32.0); POTASSIUM 4.9 MEQ/L (3.5-5.1)
[2017-01-21] MEDS: SODIUM CHLORIDE 0.9% FLUSH 10 ML FLUSH IV FLUSH SCH ×2 (09:00→20:56)
[2017-01-21] MEDS: DOCUSATE SODIUM 100 MG CAP PO SCH ×2 (09:19→20:56)
[2017-01-21] MEDS: SODIUM CHLOR 0.9% 1000 ML INJ 1,000 ML IV SCH ×2 (11:14→21:03)
[2017-01-21] MEDS ORDERED: PILL SPLITTER OTHER PRN (12:15)
[2017-01-21] MEDS: MULTIVITAMIN TAB PO SCH (13:20)
--- NOTE | 2017-01-21 15:43 | HHI.PR ---
Subjective Subjective Notes Resting in bed Asking about home medications Pain controlled Objective Vitals/I&O Vital Signs Date Time Temp Pulse Resp B/P Pulse Ox O2 Delivery O2 Flow Rate FiO2 01/21/17 12:00 96.5 86 16 106/49 97 01/21/17 11:59 Nasal Cannula 2.00 Labs Laboratory Tests Test 01/21/17 06:02 White Blood Count 13.7 Red Blood Count 4.38 Hemoglobin 12.3 Hematocrit 37.7 Mean Corpuscular Volume 85.9 Mean Corpuscular Hemoglobin 28.1 Mean Corpuscular Hemoglobin 32.6 Concent Red Cell Distribution Width 15.3 Platelet Count 220 Mean Platelet Volume 9.3 Neutrophils (%) (Auto) 82.7 Lymphocytes (%) (Auto) 10.1 Monocytes (%) (Auto) 7.0 Eosinophils (%) (Auto) 0.1 Basophils (%) (Auto) 0.1 Neutrophils # (Auto) 11.3 Lymphocytes # (Auto) 1.4 Monocytes # (Auto) 1.0 Eosinophils # (Auto) 0.0 Basophils # (Auto) 0.0 CBC Comment DIFF FINAL Differential Comment Sodium Level 139 Potassium Level 4.9 Chloride Level 106 Carbon Dioxide Level 25.4 Anion Gap 8 Blood Urea Nitrogen 29 Creatinine 1.69 Estimat Glomerular Filtration 30 Rate Random Glucose 136 Calcium Level 8.1 Cardiovascular: Regular Lungs: Clear Abdomen: Other (Obese abdomen; JAMARI in place ) Extremities: No edema Narrative Exam Alonso in place with clear yellow urine A/P Assessment and Plan 66 year old female POD1 open incisional henia repair -Advance to full liquids -Pain control -JAMARI -Alonso; plan to DC tomorrow AM -500 cc bolus today -Continue IVF -Labs in AM -Restart home meds Attending Statement patient seen at bedside doing well low uop ivf bolus pain controlled keep alonso for Is and Os Attestation The exam, history, and the medical decision-making described in the above note were completed with the assistance of the mid-level provider. I reviewed and agree with the findings presented. I attest that I had a [id number] encounter with the patient on the same day, and personally performed and documented my assessment and findings in the medical record. Cindy Smalls Jan 21, 2017 15:43 Fidencio Ford MD Jan 25, 2017 16:09
[2017-01-21] MEDS ORDERED: SODIUM CHLORID 0.9% 500 ML INJ 500 ML IV ONE (16:45)
[2017-01-21] MEDS: ATORVASTATIN 10 MG TAB PO SCH (20:56)
[2017-01-21] MEDS: SERTRALINE HCL 100 MG TAB PO SCH (20:56)
[2017-01-21] MEDS ORDERED: MELATONIN 5 MG TAB PO PRN (21:00)
[2017-01-21] MEDS: KETOROLAC TROMETHAMINE 30 MG/ML (IVP) VIAL IVP PRN (21:55)
[2017-01-21] MEDS: MORPHINE SULFATE 30 MG/30 ML PCA IV SCH (21:58)
[2017-01-21] MEDS: PANTOPRAZOLE SODIUM 40 MG VIAL IV PUSH SCH (22:52)
[2017-01-21] MEDS: METOCLOPRAMIDE HCL 10 MG/2 ML VIAL IV SCH (22:52)
[2017-01-22] VITALS (10 sets, daily range): BP systolic 103–117; BP diastolic 44–55; PULSE 82–106; RESP 17–20; TEMP 96.5–98.6; O2SAT 96–98
[2017-01-22] MEDS: SODIUM CHLOR 0.9% 1000 ML INJ 1,000 ML IV SCH ×4 (02:36→23:41)
[2017-01-22] MEDS: METOCLOPRAMIDE HCL 10 MG/2 ML VIAL IV SCH ×4 (04:18→23:39)
[2017-01-22] MEDS: INSULIN ASPART SUPPLEMENTAL SCALE SQ SCH ×4 (04:20→20:33)
[2017-01-22] MEDS: PCA - TOTAL MG MORPHINE DELIVERED PER SHIFT SCH ×3 (06:00→22:00)
[2017-01-22 06:11] LABS: AUTOMATED NEUTROPHIL # 9.3 TH/MM3 (1.8-7.7); BASOPHIL % 0.2 % (0.0-2.0); EOSINOPHIL # 0.2 TH/MM3 (0-0.4); EOSINOPHIL % 1.6 % (0.0-4.0); HEMATOCRIT 33.3 % (35.0-46.0); HEMO FLAGS DIFF FINAL; LYMPH % 12.5 % (9.0-44.0); LYMPHOCYTE # 1.5 TH/MM3 (1.0-4.8); MEAN CORPUSCULAR HEMOGLOBIN 27.8 PG (27.0-34.0); MEAN CORPUSCULAR HGB CONC 32.3 % (32.0-36.0); MONO % 8.1 % (0.0-8.0); NEUT % 77.6 % (16.0-70.0); PLATELET COUNT 181 TH/MM3 (150-450); RED BLOOD COUNT 3.87 MIL/MM3 (4.00-5.30); RED CELL DISTRIBUTION WIDTH 15.5 % (11.6-17.2)
[2017-01-22 06:35] LABS: ALT (GPT) 22 U/L (10-53); ANION GAP 9 MEQ/L (5-15); AST (GOT) 22 U/L (15-37); BICARBONATE 24.9 MEQ/L (21.0-32.0); BLOOD UREA NITROGEN 35 MG/DL (7-18); CHLORIDE 104 MEQ/L (98-107); GLOMERULAR FILTRATION RATE 23 ML/MIN (>89); POTASSIUM 4.5 MEQ/L (3.5-5.1); SODIUM (NA) 138 MEQ/L (136-145)
[2017-01-22 06:37] LABS: ALKALINE PHOSPHATASE 95 U/L (45-117); TOTAL BILIRUBIN ADULT 0.8 MG/DL (0.2-1.0)
[2017-01-22] MEDS ORDERED: SODIUM CHLORID 0.9% 500 ML INJ 500 ML IV ONE (08:15)
[2017-01-22] MEDS: LISINOPRIL 20 MG TAB PO SCH (08:30)
[2017-01-22] MEDS: PANTOPRAZOLE SODIUM 40 MG VIAL IV PUSH SCH ×2 (08:30→20:28)
[2017-01-22] MEDS: SERTRALINE HCL 100 MG TAB PO SCH ×2 (08:30→20:28)
[2017-01-22] MEDS: HYDROCHLOROTHIAZIDE 25 MG TAB PO SCH (08:30)
[2017-01-22] MEDS: MULTIVITAMIN TAB PO SCH (08:30)
[2017-01-22] MEDS: DOCUSATE SODIUM 100 MG CAP PO SCH ×2 (08:30→20:28)
[2017-01-22] MEDS: SODIUM CHLORIDE 0.9% FLUSH 10 ML FLUSH IV FLUSH SCH ×2 (08:30→20:28)
--- NOTE | 2017-01-22 08:58 | HHI.PR ---
Subjective Subjective Notes no acute issues, uop still low but improving, cr 2.1, c/o pain but controlled with second facing baster Objective Vitals/I&O Vital Signs Date Time Temp Pulse Resp B/P Pulse Ox O2 Delivery O2 Flow Rate FiO2 01/22/17 08:00 96.5 98 17 113/55 97 01/21/17 20:53 Nasal Cannula 1.00 Labs Laboratory Tests Test 01/22/17 05:46 White Blood Count 12.0 Red Blood Count 3.87 Hemoglobin 10.8 Hematocrit 33.3 Mean Corpuscular Volume 86.0 Mean Corpuscular Hemoglobin 27.8 Mean Corpuscular Hemoglobin 32.3 Concent Red Cell Distribution Width 15.5 Platelet Count 181 Mean Platelet Volume 8.2 Neutrophils (%) (Auto) 77.6 Lymphocytes (%) (Auto) 12.5 Monocytes (%) (Auto) 8.1 Eosinophils (%) (Auto) 1.6 Basophils (%) (Auto) 0.2 Neutrophils # (Auto) 9.3 Lymphocytes # (Auto) 1.5 Monocytes # (Auto) 1.0 Eosinophils # (Auto) 0.2 Basophils # (Auto) 0.0 CBC Comment DIFF FINAL Differential Comment Sodium Level 138 Potassium Level 4.5 Chloride Level 104 Carbon Dioxide Level 24.9 Anion Gap 9 Blood Urea Nitrogen 35 Creatinine 2.16 Estimat Glomerular Filtration 23 Rate Random Glucose 136 Calcium Level 7.6 Total Bilirubin 0.8 Aspartate Amino Transf 22 (AST/SGOT) Alanine Aminotransferase 22 (ALT/SGPT) Alkaline Phosphatase 95 Total Protein 5.8 Albumin 2.7 Cardiovascular: Regular Lungs: Clear Abdomen: Other (soft jamari c/d/i good seal) A/P Assessment and Plan 66 year old female POD1 open incisional henia repair -full liquids -Pain control -JAMARI -Briones; keep for strict Is and Os -500 cc bolus today -Continue IVF -Labs in AM - dvt ppx Fidencio Ford MD Jan 22, 2017 08:58
[2017-01-22] MEDS ORDERED: NON-FORMULARY DRUG (Lisinopril-Hctz 1 TAB) PO SCH (09:00)
[2017-01-22] MEDS: ATORVASTATIN 10 MG TAB PO SCH (20:28)
--- NOTE | 2017-01-22 22:26 | MP ---
cc: KAILYN FORD MD DATE OF SURGERY 01/20/17 PREOPERATIVE DIAGNOSIS Incarcerated incisional hernia x2. POSTOPERATIVE DIAGNOSIS Incarcerated incisional hernia x2. PROCEDURE PERFORMED 1. Open incisional hernia repair x2 2. Placement of rectal rectus poly propylene mesh 15 x 21 cm. 3. Removal of skin and subcutaneous tissue. 4. Complex modified abdominoplasty 6 x 10 x 35 cm. 5. Abdominal wall reconstruction with modified component separation. 6. Placement of JAMARI dressing. SURGEON Dr. Kailyn Ford PSYCHIATRIC NURSE PRACTITIONER Dr. Bob Gonzalez, needed due to the complexity of the case. Dr. Gonzalez assisted with retraction and facilitated the case FINDINGS Several small hernia defects with incarcerated omentum and small bowel. COMPLICATIONS None. SPECIMENS None. ESTIMATED BLOOD LOSS 40 cc. ANESTHESIA GETA. IV FLUIDS See anesthesia sheet. WOUND CLASSIFICATION Clean. INDICATION The patient is a 66-year-old female who presented initially to the emergency department with incarcerated bowel with large ventral incisional hernia. She states had significant pain and was seen with further workup including medical and cardiac evaluation with clearance and decision was made for repair of hernia with abdominal wall reconstruction. DETAILS OF THE PROCEDURE The patient was taken to the operating suite, placed in supine position. She was prepped and draped in the usual sterile fashion after induction with anesthesia. Brief time-out done stating correct patient, procedure and surgical site. We were all in with this. Attention directed to the midline abdomen where a 10 blade was used to make a midline skin including just superior to the umbilicus down to the pubis. Further dissection was done with electro Bovie cautery. The incision was carried down to what was a large incisional hernia just inferior to the umbilicus. The hernia sac was identified and mobilized using a hemostat and dissection bluntly and electro Bovie cautery. Another sac was noted just inferior to this. The initial hernia sac was noted to have small bowel with an incarceration in it, some omentum along with the appendix was contained in this hernia sac. The hernia sac was opened and mobilized and dissected down to good fascial edges for which the sac was removed. Second hernia sac again identified, mobilized and resected down to good fascial edges and also excised. The hernias were joined with midline incision in order to identify good fascial edges. Next, attention then directed to the peritoneal layer and just inferior to the rectus. This layer was meticulously dissected off the inferior rectus muscle. This was mobilized and this layer was then reapproximated with 2-0 PDS in a running fashion. Next, the polypropylene Bard mesh was obtained and cut in an elliptical shape by a 15 x 21 cm long. The mesh was then secured just superior to the peritoneal layer that had been approximated in the retro rectus space. This was done with interrupted 2-0 PDS sutures, first tacking 12 o'clock, 3 o'clock, 6 o'clock, 9 o'clock positions and then splinting the difference with attachment of approximately 14 sutures. The mesh was noted to lay snug and taut and laid it flat against the peritoneal layer. Next, the midline fascial layer including the rectus was reapproximated. This was done with a single long running #1 Prolene suture. Prior to closure subfascial flaps were mobilized to both the lateral sides and exposing good fascial layer. Following this commencement of abdominal wall, abdominal plasty was done and excision of subcutaneous fat and tissue. The lateral subcutaneous and fat skin edges were identified and mobilized to midline at a point, 6 cm wide. The 10 blade was used to make skin incision in an elliptical pattern in order to excise both the right and left subcutaneous skin and soft tissue. This was noted to be 35 cm long and 10 cm deep. This was further mobilized and resected with electro Bovie cautery. Hemostasis was obtained. Next, local anesthetic including Exparel was injected subfascially radially around the wound bed area. Next, the abdominal plasty was done. Quill stitches were placed with 2-0 Vicryl sutures in a staggered pattern in order to close the subcutaneous space and approximate the subcutaneous tissue edges. After we were finished with the component separations and abdominal wall reconstruction the modified abdominal plasty and reapproximation of the subcutaneous tissues. The skin was approximated with diaz and then a JAMARI dressing was applied. Prior to closure of each skin level thorough irrigation was done and hemostasis was achieved. The patient tolerated the procedure well. There is no intraoperative complication. All lap and instrument counts were correct at the end of the procedure. The patient was extubated, taken stable to PACU. MD RAYRAY Girard/ALFA /8:02 PM /9:57 PM GREYSON
[2017-01-23] VITALS (10 sets, daily range): BP systolic 112–153; BP diastolic 49–60; PULSE 76–99; RESP 17–22; TEMP 96.8–99.7; O2SAT 93–97
[2017-01-23] MEDS: KETOROLAC TROMETHAMINE 30 MG/ML (IVP) VIAL IVP PRN (03:38)
[2017-01-23] MEDS: METOCLOPRAMIDE HCL 10 MG/2 ML VIAL IV SCH ×4 (05:17→20:51)
[2017-01-23] MEDS: SODIUM CHLOR 0.9% 1000 ML INJ 1,000 ML IV SCH ×3 (05:22→20:50)
[2017-01-23] MEDS: PCA - TOTAL MG MORPHINE DELIVERED PER SHIFT SCH ×3 (05:22→20:52)
[2017-01-23] MEDS: INSULIN ASPART SUPPLEMENTAL SCALE SQ SCH ×4 (05:23→20:52)
[2017-01-23 07:16] LABS: AUTOMATED NEUTROPHIL # 7.2 TH/MM3 (1.8-7.7); BASOPHIL % 0.2 % (0.0-2.0); EOSINOPHIL # 0.2 TH/MM3 (0-0.4); EOSINOPHIL % 2.5 % (0.0-4.0); HEMATOCRIT 28.6 % (35.0-46.0); HEMO FLAGS DIFF FINAL; LYMPH % 9.2 % (9.0-44.0); LYMPHOCYTE # 0.8 TH/MM3 (1.0-4.8); MEAN CELL VOLUME 85.9 FL (80.0-100.0); MEAN CORPUSCULAR HEMOGLOBIN 28.2 PG (27.0-34.0); MEAN CORPUSCULAR HGB CONC 32.8 % (32.0-36.0); MONO % 8.2 % (0.0-8.0); NEUT % 79.9 % (16.0-70.0); PLATELET COUNT 152 TH/MM3 (150-450); RED BLOOD COUNT 3.33 MIL/MM3 (4.00-5.30); RED CELL DISTRIBUTION WIDTH 15.1 % (11.6-17.2); WHITE BLOOD COUNT 9.1 TH/MM3 (4.0-11.0)
[2017-01-23 07:38] LABS: CALCIUM-PROTEIN CORRECTED 8.3 MG/DL (8.5-10.1); POTASSIUM 3.9 MEQ/L (3.5-5.1); TOTAL BILIRUBIN ADULT 0.7 MG/DL (0.2-1.0)
[2017-01-23] MEDS: DOCUSATE SODIUM 100 MG CAP PO SCH ×2 (08:12→20:51)
[2017-01-23] MEDS: LISINOPRIL 20 MG TAB PO SCH (08:12)
[2017-01-23] MEDS: MULTIVITAMIN TAB PO SCH (08:12)
[2017-01-23] MEDS: SERTRALINE HCL 100 MG TAB PO SCH ×2 (08:13→20:51)
[2017-01-23] MEDS: PANTOPRAZOLE SODIUM 40 MG VIAL IV PUSH SCH ×2 (08:13→20:51)
[2017-01-23] MEDS: HYDROCHLOROTHIAZIDE 25 MG TAB PO SCH (08:13)
[2017-01-23] MEDS: SODIUM CHLORIDE 0.9% FLUSH 10 ML FLUSH IV FLUSH SCH ×2 (08:13→20:50)
[2017-01-23] MEDS: ACETAMINOPHEN/HYDROcodone 325 MG/5 MG TAB PO PRN ×3 (13:06→21:01)
--- NOTE | 2017-01-23 15:48 | HHI.PR ---
Subjective Subjective Notes Resting in bed Has been OOB walking in the hallways today Objective Vitals/I&O Vital Signs Date Time Temp Pulse Resp B/P Pulse Ox O2 Delivery O2 Flow Rate FiO2 01/23/17 12:36 95 21 01/23/17 12:00 98.0 87 17 122/55 01/23/17 08:24 Nasal Cannula 1.00 Labs Laboratory Tests Test 01/23/17 05:16 White Blood Count 9.1 Red Blood Count 3.33 Hemoglobin 9.4 Hematocrit 28.6 Mean Corpuscular Volume 85.9 Mean Corpuscular Hemoglobin 28.2 Mean Corpuscular Hemoglobin 32.8 Concent Red Cell Distribution Width 15.1 Platelet Count 152 Mean Platelet Volume 8.5 Neutrophils (%) (Auto) 79.9 Lymphocytes (%) (Auto) 9.2 Monocytes (%) (Auto) 8.2 Eosinophils (%) (Auto) 2.5 Basophils (%) (Auto) 0.2 Neutrophils # (Auto) 7.2 Lymphocytes # (Auto) 0.8 Monocytes # (Auto) 0.7 Eosinophils # (Auto) 0.2 Basophils # (Auto) 0.0 CBC Comment DIFF FINAL Differential Comment Sodium Level 138 Potassium Level 3.9 Chloride Level 108 Carbon Dioxide Level 23.0 Anion Gap 7 Blood Urea Nitrogen 26 Creatinine 1.25 Estimat Glomerular Filtration 43 Rate Random Glucose 123 Calcium Level 7.3 Protein Corrected Calcium 8.3 Total Bilirubin 0.7 Aspartate Amino Transf 17 (AST/SGOT) Alanine Aminotransferase 16 (ALT/SGPT) Alkaline Phosphatase 88 Total Protein 5.2 Albumin 2.2 Cardiovascular: Regular Lungs: Clear Abdomen: Other (JAMARI in place; abdomen soft; minimal drainage on JAMARI ) Extremities: No edema Narrative Exam Briones in place with clear yellow urine A/P Assessment and Plan 66 year old female POD3 open incisional hernia repair -Advance to regular diet -Pain control -JAMARI -DC Briones -Renal function continues to improve -Will decrease IVF too 100 cc/hr -Labs in AM -Lovenox Attending Statement Patient seen and examined at bedside doing better no acute issues pain better oob Attestation The exam, history, and the medical decision-making described in the above note were completed with the assistance of the mid-level provider. I reviewed and agree with the findings presented. I attest that I had a [id number] encounter with the patient on the same day, and personally performed and documented my assessment and findings in the medical record. Cindy Smalls Jan 23, 2017 15:48 Fidencio Ford MD Jan 27, 2017 21:51
[2017-01-23] MEDS ORDERED: ENOXAPARIN SODIUM 40 MG/0.4 ML SYRINGE SQ SCH (17:00)
[2017-01-23] MEDS: ATORVASTATIN 10 MG TAB PO SCH (20:51)
[2017-01-24] VITALS (7 sets, daily range): BP systolic 97–138; BP diastolic 49–84; PULSE 69–91; RESP 17–20; TEMP 97–98.8; O2SAT 95–97
[2017-01-24] MEDS: METOCLOPRAMIDE HCL 10 MG/2 ML VIAL IV SCH ×2 (03:24→12:15)
[2017-01-24] MEDS: PCA - TOTAL MG MORPHINE DELIVERED PER SHIFT SCH ×2 (03:25→12:51)
[2017-01-24] MEDS: SODIUM CHLOR 0.9% 1000 ML INJ 1,000 ML IV SCH ×2 (03:25→15:42)
[2017-01-24] MEDS: INSULIN ASPART SUPPLEMENTAL SCALE SQ SCH ×3 (05:31→16:00)
[2017-01-24 07:54] LABS: BICARBONATE 23.1 MEQ/L (21.0-32.0); POTASSIUM 4.3 MEQ/L (3.5-5.1)
[2017-01-24] MEDS: ACETAMINOPHEN/HYDROcodone 325 MG/5 MG TAB PO PRN (08:39)
[2017-01-24] MEDS: DOCUSATE SODIUM 100 MG CAP PO SCH (08:40)
[2017-01-24] MEDS: LISINOPRIL 20 MG TAB PO SCH (08:40)
[2017-01-24] MEDS: SERTRALINE HCL 100 MG TAB PO SCH (08:40)
[2017-01-24] MEDS: MULTIVITAMIN TAB PO SCH (08:40)
[2017-01-24] MEDS: HYDROCHLOROTHIAZIDE 25 MG TAB PO SCH (08:40)
[2017-01-24] MEDS: PANTOPRAZOLE SODIUM 40 MG VIAL IV PUSH SCH (08:41)
[2017-01-24] MEDS: SODIUM CHLORIDE 0.9% FLUSH 10 ML FLUSH IV FLUSH SCH (08:47)
[2017-01-24] MEDS ORDERED: HYDR-3533 PO (16:32)
--- NOTE | 2017-01-24 16:34 | HHI.PR ---
Subjective Subjective Notes doing well, tolerating a diet, passing flatus. Voids without problem, moved around on her own today. Wants to go home. Objective Vitals/I&O Vital Signs Date Time Temp Pulse Resp B/P Pulse Ox O2 Delivery O2 Flow Rate FiO2 01/24/17 16:00 97.8 72 20 125/58 96 01/24/17 10:05 21 01/23/17 08:24 Nasal Cannula 1.00 Labs Laboratory Tests Test 01/24/17 06:23 Sodium Level 143 Potassium Level 4.3 Chloride Level 113 Carbon Dioxide Level 23.1 Anion Gap 7 Blood Urea Nitrogen 18 Creatinine 0.88 Estimat Glomerular Filtration 64 Rate Random Glucose 125 Calcium Level 7.9 Cardiovascular: Regular Lungs: Clear Abdomen: Non-distended, Non-tender, Other (JAMARI intactwith small amount of dried drainage on dressing. BS active.) Extremities: No edema A/P Assessment and Plan Postop AWR, doing well. DC home, pt and ready to go. Cash Gonzalez MD Jan 24, 2017 16:34
== END 2017-01-24 18:23 | disposition home or self-care (01) | DRG 354 ==
LOC: HSDC 10:55 → HSDI 16:47 → N07B 18:28
PROVIDERS: ADMIT Surgery; ATTEND Surgery
PROC: 0JB80ZZ Excision of Abdomen Subcutaneous Tissue and Fascia, Open Approach (ICD-10-PCS; 2017-01-20)
PROC: 0WUF0JZ Supplement Abdominal Wall with Synthetic Substitute, Open Approach (ICD-10-PCS; principal; 2017-01-20 12:54)
PROC: 0WQF0ZZ Repair Abdominal Wall, Open Approach (ICD-10-PCS; 2017-01-20 12:54)
DX: K43.0 Incisional hernia with obstruction, without gangrene (principal); Z68.43 Body mass index [BMI] 50.0-59.9, adult; J44.9 Chronic obstructive pulmonary disease, unspecified; I10 Essential (primary) hypertension; E66.01 Morbid (severe) obesity due to excess calories; K21.9 Gastro-esophageal reflux disease without esophagitis; M06.9 Rheumatoid arthritis, unspecified; Z87.891 Personal history of nicotine dependence; Z88.0 Allergy status to penicillin
CPT/HCPCS: 80048; 80053; 82948; 85025; 94150; C1781; C9113; C9290; J1170; J1650; J1815; J1885; J2250; J2270; J2370; J2405; J2765; J3010; J3370; J7030; J7040; J7050; J7120

== ENCOUNTER 2017-02-07 17:43 | Observation (INO) | payer MEDICARE, OTHER ==
[~2017-02-07] VITALS: Ht 160 cm; Wt 140.0 kg
[~2017-02-07 17:43] MED LIST changes: +HYDR-3533 PO
[2017-02-07 17:47] VITALS: BP 138/80; PULSE 104; RESP 22; TEMP 98.2
[2017-02-07 17:54] VITALS: BP 138/80; PULSE 90; RESP 24; O2SAT 98
[2017-02-07] MEDS ORDERED: SODIUM CHLORIDE 0.9% FLUSH 10 ML FLUSH IV FLUSH PRN ×2 (18:00→20:00)
--- NOTE | 2017-02-07 18:03 | PD ---
HPI . Post surgical problem Chief Complaint: Wound/Suture/Staple Re-Check Time Seen by Provider: 17:53 Travel History International Travel<30 days: No Contact w/Intl Traveler<30days: No History of Present Illness HPI This patient presents with an open wound to her abdomen. She is status post incisional hernia repair on 01/20. She states that she had been doing well. She went to the bathroom today and the wound came open. EMS was called and she was brought to the hospital. The patient reports very little pain. She does admit she is very nervous. The patient is unsure as to what may have caused the wound to open. She states that she was doing fine up until the time that the wound opened. PFSH Past Medical History Arthritis: Yes Depression: Yes Cancer: No Cardiovascular Problems: Yes High Cholesterol: Yes Diabetes: Yes Endocrine: Yes GERD: Yes Genitourinary: No Hepatitis: No Hiatal Hernia: Yes Hypertension: Yes Immune Disorder: No Musculoskeletal: Yes Neurologic: No Psychiatric: No Reproductive: No Respiratory: Yes Thyroid Disease: No ?: Not Past Surgical History Abdominal Surgery: Yes AICD: No Cardiac Surgery: No Cholecystectomy: Yes Ear Surgery: No Endocrine Surgery: No Eye Surgery: No Genitourinary Surgery: No Gynecologic Surgery: Yes (c section, hysterectomy) Hysterectomy: Yes Joint Replacement: Yes (LEFT KNEE) Oral Surgery: Yes (tonsilectomy) Pacemaker: No Thoracic Surgery: No Tonsillectomy: Yes Social History Alcohol Use: No Tobacco Use: No Substance Use: No Allergies-Medications (Allergen,Severity, Reaction): Coded Allergies: penicillin G (Verified Allergy, Unknown, 02/07/17) Reported Meds & Prescriptions Reported Meds & Active Scripts Active Lortab (Hydrocodone-Acetaminophen) 5-325 Mg Tab 1-2 Tab PO Q6H PRN Reported Atorvastatin (Atorvastatin Calcium) 10 Mg Tab 10 Mg PO HS Aspirin 81 (Aspirin) 81 Mg Tabdr 81 Mg PO DAILY Multi-Vitamin Daily (Multiple Vitamin) 1 Tab Tab 1 Tab PO DAILY Melatonin 10 Mg Tab 10 Mg PO HS PRN Sertraline (Sertraline HCl) 100 Mg Tab 100 Mg PO BID Meloxicam 15 Mg Tab 15 Mg PO DAILY Lisinopril-Hctz 20-12.5 Mg Tab 1 Tab PO DAILY Review of Systems Except as stated in HPI: all other systems reviewed are Neg Physical Exam Narrative GENERAL: This is a very anxious appearing woman who looks distressed. SKIN: Warm and dry. HEAD: Atraumatic. Normocephalic. EYES: Pupils equal and round. ENT: No nasal bleeding or discharge. Mucous membranes pink and moist. NECK: Trachea midline. CARDIOVASCULAR: Regular rate and rhythm. RESPIRATORY: No accessory muscle use. GASTROINTESTINAL: She has an open surgical wound in her mid abdomen. This was explored sterilely. The opening appears to violate the peritoneum. MUSCULOSKELETAL: No obvious deformities. No edema. NEUROLOGICAL: Awake and alert. No obvious cranial nerve deficits. Motor grossly within normal limits. Normal speech. PSYCHIATRIC: Appropriate mood and affect; insight and judgment normal. Data Data Last Documented VS Vital Signs Date Time Temp Pulse Resp B/P (MAP) Pulse Ox O2 Delivery O2 Flow Rate FiO2 02/07/17 17:54 90 24 138/80 (99) 98 Nasal Cannula 2.00 02/07/17 17:47 98.2 Orders Orders Basic Metabolic Panel (Bmp) (02/07/17 17:54) Complete Blood Count With Diff (02/07/17 17:54) Iv Access Insert/Monitor (02/07/17 17:54) Ecg Monitoring (02/07/17 17:54) Oximetry (02/07/17 17:54) Sodium Chloride 0.9% Flush (Ns Flush) (02/07/17 18:00) Admit Order (Ed Use Only) (02/07/17 18:43) Labs Laboratory Tests Test 02/07/17 18:25 [facility] Medical Decision Making Medical Screen Exam Complete: Yes Emergency Medical Condition: Yes Medical Record Reviewed: Yes (other medical problems include hypertension, rheumatoid arthritis and tobacco abuse.) Differential Diagnosis Differential diagnosis includes opening of the skin only versus opening of the peritoneum. Narrative Course Patient presents to us by EVAC is a wound dehiscence. I have ordered some baseline labs. Surgery has been consulted. Dr. Wakefield is here seeing the patient. Physician Communication Physician Communication Dr. Wakefield Diagnosis Primary Impression: Wound dehiscence Admitting Information Admitting Physician Requests: Observation Condition: Stable Diana Bhatt MD Feb 07, 2017 18:03
[2017-02-07] MEDS ORDERED: IOHEXOL 350 MG/ML 10 ML VIAL (for RAD DIAG) IVCONTRAST ONE (18:45)
[2017-02-07 18:59] LABS: AUTOMATED NEUTROPHIL # 5.9 TH/MM3 (1.8-7.7); BASOPHIL % 0.4 % (0.0-2.0); EOSINOPHIL # 0.6 TH/MM3 (0-0.4); EOSINOPHIL % 6.8 % (0.0-4.0); HEMATOCRIT 36.1 % (35.0-46.0); HEMO FLAGS DIFF FINAL; LYMPH % 16.9 % (9.0-44.0); LYMPHOCYTE # 1.5 TH/MM3 (1.0-4.8); MEAN CELL VOLUME 84.6 FL (80.0-100.0); MEAN CORPUSCULAR HEMOGLOBIN 26.9 PG (27.0-34.0); MEAN CORPUSCULAR HGB CONC 31.8 % (32.0-36.0); MONO % 8.4 % (0.0-8.0); NEUT % 67.5 % (16.0-70.0); PLATELET COUNT 274 TH/MM3 (150-450); RED BLOOD COUNT 4.26 MIL/MM3 (4.00-5.30); RED CELL DISTRIBUTION WIDTH 14.8 % (11.6-17.2); WHITE BLOOD COUNT 8.7 TH/MM3 (4.0-11.0)
[2017-02-07] MEDS ORDERED: ACETAMINOPHEN/HYDROcodone 325 MG/5 MG TAB PO PRN (19:00)
[2017-02-07] MEDS ORDERED: Post-op Orders (for Pharmacy) MISC XX ONE (19:00)
[2017-02-07] MEDS ORDERED: diphenhydrAMINE HCL 50 MG/ML VIAL IV PRN (19:00)
[2017-02-07] MEDS ORDERED: MORPHINE SULFATE 4 MG/ML INJ IV PUSH PRN (19:00)
[2017-02-07] MEDS ORDERED: NALOXONE HCL 0.4 MG/ML AMP IV PRN (19:00)
[2017-02-07] MEDS ORDERED: ONDANSETRON HCL 4 MG/2 ML VIAL IV PRN (19:00)
[2017-02-07 19:11] LABS: BICARBONATE 26.6 MEQ/L (21.0-32.0)
[2017-02-07] MEDS ORDERED: DIATRIZOATE MEGLUM/DIATRIZOATE SOD 9 ML CUP ONE (19:44)
[2017-02-07] MEDS ORDERED: DIATRIZOATE MEGLUM/DIATRIZOATE SOD 9 ML CUP PO ONE (20:30)
--- NOTE | 2017-02-07 20:35 | MH ---
cc: RASHAUN VILLAR MD DATE OF ADMISSION 02/07/2017 CHIEF COMPLAINT Wound disruption. HISTORY OF PRESENT ILLNESS Ms. Brewer is a very pleasant 66-year-old patient of Dr. Fidencio Ford who on January 20 underwent a complex abdominal wall reconstruction for a ventral incisional hernia. She apparently had a retrorectus mesh placed with an abdominoplasty for a large ventral incisional hernia. The patient reports she has been doing well. She had seen Dr. Ford back for a postop visit and was noted to have a little bit of serous drainage. The wound was also slightly red. Dr. Ford took out all of her diaz and place Steri-Strips. She was started on some oral Keflex. She states last night she noticed that she was getting an increased amount of serous drainage coming out of the wound. When she went to get on the toilet this afternoon, she felt a pop and looked down and her skin had opened up and spilled out a large amount of serosanguineous fluid all over her bathroom. She panicking and called where she was brought to [facility] and seen and evaluated by DrRick ___. DrRick ___ examined her and was concerned about a possible fascial disruption and surgical consultation was requested. The patient denies any pain. She denies any fever or chills. She states her bowels are working well and she is not taking any pain medicine at home. She thought she was doing very well except for the wound leakage. She states the wound leakage has always been clear or slightly pink color. She reports no evidence of pus. No fever. PAST MEDICAL HISTORY 1. Coronary artery disease, 2. Gastroesophageal reflux disease, 3. Hypertension, PAST SURGICAL HISTORY Multiple abdominal surgeries include a , hysterectomy and a recent ventral incisional hernia repair by Dr. Ford and Dr. Gonzalez on January 20. MEDICATIONS 1. Atorvastatin 2. Aspirin. 3. Multivitamin, 4. Melatonin. 5. Sertraline. 6. Meloxicam 7. Lisinopril. 8. Hydrochlorothiazide. ALLERGIES PENICILLIN SOCIAL HISTORY She does not smoke or drink. She lives here locally with her . FAMILY HISTORY Noncontributory. REVIEW OF SYSTEMS Please see HPI. PHYSICAL EXAMINATION VITAL SIGNS: Temperature is 98, pulse is 90, blood pressure 130/80, respiratory rate 20. GENERAL: This is a pleasant obese female sitting in the emergency department in no apparent stress. HEENT: Pupils equal, round, reactive to light. Extraocular movements are intact. Oropharynx is clear and moist. NECK: Supple. No masses. LUNGS: Clear to auscultation bilaterally. HEART: S1-S2, no murmur. ABDOMEN: Soft, obese with multiple Steri-Strips in place. In the central portion of the wound, She has about a 7 cm skin disruption with subcutaneous fat visible. I put on a sterile glove and explored the wound and the fascia appears to be intact. This appears to be a disruption of a superficial seroma likely underneath her skin flaps. I could palpate the sutures and they appeared intact. There is no evidence of peritoneal fluid coming out. No evidence of palpable or visualize bowel. The remainder of the wound appears intact. EXTREMITIES: Free range of motion x4. NEUROLOGIC: She is alert x oriented times three. LABORATORY DATA Labs are pending at this time. IMPRESSION Superficial wound dehiscence likely disruption of large subcutaneous seroma. PLAN At this point, I advised the patient I would recommend that we get a CT scan of the abdomen and pelvis to confirm fascial integrity. By physical exam, I believe the fascia is intact. In the meantime, I have advised her I am going to place a wound VAC on the wound to help with control of the seroma fluid and decrease the space of the subcutaneous tissue. She is agreeable. We will go ahead and get a VAC and get that placed and order a CT scan of the abdomen and pelvis. I am going to admit her for observation so we can set up a home VAC therapy to be performed on Thursday, Thursday, Thursday. MD CARRIE Ray/ /6:57 PM /8:12 PM
[2017-02-07] MEDS ORDERED: PCA - TOTAL MG MORPHINE DELIVERED PER SHIFT SCH (22:00)
[2017-02-07 22:34] VITALS: BP 183/95; PULSE 102; RESP 18; TEMP 98.1; O2SAT 97
--- NOTE | 2017-02-07 22:53 | RADRPT ---
EXAM DATE/TIME: 02/07/2017 22:04 [facility] COMPARISON: CT ABDOMEN & PELVIS W CONTRAST, November 26, 2016, 12:35. INDICATIONS : Midline hernia repair 2 weeks ago. Dehiscence of incision. IV CONTRAST: 95 cc Omnipaque 350 (iohexol) IV ORAL CONTRAST: Prescribed oral contrast ingested. RADIATION DOSE: 31.48 CTDIvol (mGy) ; Patient body habitus MEDICAL HISTORY : Hernia, hiatal. Gastroesophageal reflux disease. Hypertension. Diabetes. SURGICAL HISTORY : section. Hysterectomy. Cholecystectomy. Hernia repair. ENCOUNTER: Initial ACUITY: 1 day PAIN SCALE: 6/10 LOCATION: Medial abdomen TECHNIQUE: Volumetric scanning of the abdomen and pelvis was performed. Using automated exposure control and ad justment of the mA and/or kV according to patient size, radiation dose was kept as low as reasonably achievable to obtain optimal diagnostic quality images. DICOM format image data is available electro nically for review and comparison. FINDINGS: There is air within the midline incision but no fluid collection identified. There is a focal ovoid collection of fluid and fat within the right hemipelvis which has a similar appearance to the previou sly noted herniated peritoneal fat to the right of midline on a previous examination. This may repre sent an area of infarcted fat. Clinical correlation is recommended. There is no bowel obstruction. Hepatosplenomegaly is again noted and stable. The patient is status post cholecystectomy. The kidn eys are unchanged and demonstrate no acute abnormality. The adrenal glands are normal bilaterally. The pancreas is normal. Scattered uncomplicated sigmoid diverticula are noted. The appendix is norm al. Perihilar patchiness is noted within the visualized lung bases raising the possibility of pulmon myra edema versus pneumonia. Clinical correlation is recommended. Tiny right pleural effusion is not ed. Degenerative changes and scoliosis of the thoracolumbar spine are noted. CONCLUSION: 1. Air within the midline incision without focal fluid collection noted. 2. Round area of fat, fluid and streaky density within the right hemipelvis which has the appearance of the previously noted herniated peritoneal fat. This raises the possibility of infarcted peritone al fat. Clinical correlation is recommended. 3. Uncomplicated sigmoid diverticulosis. 4. Hepatosplenomegaly. 5. Perihilar patchiness within the visualized lung bases raising the possibility of pulmonary edema versus pneumonia. Clinical correlation is recommended. 6. Degenerative changes and scoliosis of the thoracolumbar spine. 7. Tiny right pleural effusion. Sami Rodriguez MD on February 07, 2017 at 22:30 Board Certified Radiologist. This report was verified electronically.
[2017-02-07] MEDS: LACTATED RINGER'S 1000 ML INJ 1,000 ML IV SCH (22:58)
[2017-02-07] MEDS: SODIUM CHLORIDE 0.9% FLUSH 10 ML FLUSH IV FLUSH SCH (22:58)
[2017-02-07] MEDS: CEPHALEXIN MONOHYDRATE 500 MG CAP PO SCH (22:58)
[2017-02-07 23:21] VITALS: BP 145/70; PULSE 102; RESP 20; O2SAT 99
[2017-02-07] MEDS: ENOXAPARIN SODIUM 40 MG/0.4 ML SYRINGE SQ SCH (23:21)
[2017-02-07] MEDS: ACETAMINOPHEN/HYDROcodone 325 MG/5 MG TAB PO PRN (23:34)
[2017-02-08] VITALS (7 sets, daily range): BP systolic 125–137; BP diastolic 56–61; PULSE 75–88; RESP 16–21; TEMP 97.5–98.2; O2SAT 95–100
[2017-02-08] MEDS: ACETAMINOPHEN/HYDROcodone 325 MG/5 MG TAB PO PRN (05:11)
[2017-02-08] MEDS: CEPHALEXIN MONOHYDRATE 500 MG CAP PO SCH ×3 (05:15→21:44)
[2017-02-08] MEDS: LACTATED RINGER'S 1000 ML INJ 1,000 ML IV SCH ×3 (05:15→21:52)
[2017-02-08] MEDS: SODIUM CHLORIDE 0.9% FLUSH 10 ML FLUSH IV FLUSH SCH ×2 (09:00→21:44)
--- NOTE | 2017-02-08 18:05 | HHI.PR ---
Subjective Subjective Notes feels better, wants to go home Objective Vitals/I&O Vital Signs Date Time Temp Pulse Resp B/P (MAP) Pulse Ox O2 Delivery O2 Flow Rate FiO2 02/08/17 16:21 97.8 75 18 128/60 (82) 96 02/08/17 07:15 Nasal Cannula 2.00 Labs Laboratory Tests Test 02/07/17 18:25 White Blood Count 8.7 Red Blood Count 4.26 Hemoglobin 11.4 Hematocrit 36.1 Mean Corpuscular Volume 84.6 Mean Corpuscular Hemoglobin 26.9 Mean Corpuscular Hemoglobin Concent 31.8 Red Cell Distribution Width 14.8 Platelet Count 274 Mean Platelet Volume 7.4 Neutrophils (%) (Auto) 67.5 Lymphocytes (%) (Auto) 16.9 Monocytes (%) (Auto) 8.4 Eosinophils (%) (Auto) 6.8 Basophils (%) (Auto) 0.4 Neutrophils # (Auto) 5.9 Lymphocytes # (Auto) 1.5 Monocytes # (Auto) 0.7 Eosinophils # (Auto) 0.6 Basophils # (Auto) 0.0 CBC Comment DIFF FINAL Differential Comment Blood Urea Nitrogen 13 Creatinine 0.66 Random Glucose 136 Calcium Level 8.1 Sodium Level 140 Potassium Level 4.0 Chloride Level 107 Carbon Dioxide Level 26.6 Anion Gap 6 Estimat Glomerular Filtration Rate 90 Cardiovascular: Regular Lungs: Clear Abdomen: Non-distended, Non-tender Extremities: No edema, Perfused A/P Assessment and Plan 66yo female s/p VHR, seroma draining, s/p VAC placement, stable. VAC in tact await and home VAC for DC home BANDAR restart home med, Jose Tapia MD Feb 08, 2017 18:05
[2017-02-08] MEDS ORDERED: MELATONIN 5 MG TAB PO PRN (18:15)
[2017-02-08] MEDS: ASPIRIN EC 81 MG TABEC PO SCH (18:25)
[2017-02-08] MEDS: LISINOPRIL 20 MG TAB PO SCH (18:25)
[2017-02-08] MEDS: MELOXICAM 15 MG TAB PO SCH (19:15)
[2017-02-08] MEDS ORDERED: ATORVASTATIN 10 MG TAB PO SCH (21:00)
[2017-02-08] MEDS: SERTRALINE HCL 100 MG TAB PO SCH (21:44)
[2017-02-08] MEDS: ENOXAPARIN SODIUM 40 MG/0.4 ML SYRINGE SQ SCH (21:48)
[2017-02-09 00:13] VITALS: BP 141/68; PULSE 67; RESP 18; TEMP 98.1; O2SAT 97
[2017-02-09] MEDS: CEPHALEXIN MONOHYDRATE 500 MG CAP PO SCH ×2 (05:38→14:44)
[2017-02-09 07:19] VITALS: BP 139/60; PULSE 83; RESP 19; TEMP 97.7; O2SAT 95
[2017-02-09] MEDS: SODIUM CHLORIDE 0.9% FLUSH 10 ML FLUSH IV FLUSH SCH (09:00)
[2017-02-09] MEDS ORDERED: HYDROCHLOROTHIAZIDE 12.5 MG CAP PO SCH (09:00)
[2017-02-09] MEDS: LACTATED RINGER'S 1000 ML INJ 1,000 ML IV SCH (09:17)
[2017-02-09] MEDS: SERTRALINE HCL 100 MG TAB PO SCH (09:19)
[2017-02-09] MEDS: ASPIRIN EC 81 MG TABEC PO SCH (09:19)
[2017-02-09] MEDS: LISINOPRIL 20 MG TAB PO SCH (09:19)
[2017-02-09] MEDS: MELOXICAM 15 MG TAB PO SCH (09:19)
--- NOTE | 2017-02-09 11:08 | HHI.PR ---
Subjective Subjective Notes no acute issues, pain controlled, no fevers, tolerating diet Objective Vitals/I&O Vital Signs Date Time Temp Pulse Resp B/P (MAP) Pulse Ox O2 Delivery O2 Flow Rate FiO2 02/09/17 07:19 97.7 83 19 139/60 (86) 95 02/08/17 07:15 Nasal Cannula 2.00 Cardiovascular: Regular Lungs: Clear Abdomen: Other (vac good seal) Attending Statement hx of hernia repair, with wound dehiscence, no fevers normal wbc, no infection PLAN vac, will change prior to d/c pain control oob reg diet d/c home today with Fidencio Herrera MD Feb 09, 2017 11:08
--- NOTE | 2017-02-09 11:10 | HHI.FF ---
Face to Face Verification Diagnosis: (1) Wound dehiscence Home Health Nursing Order: Wound care and dressing changes (wound vac change thursday, thursday, thursday) I have seen patient Racahel Brewer on 02/09/17. My clinical findings support the need for the requested home health care services because: Limited ability to care for self I certify that my clinical findings support that this patient is homebound because: Unsafe to leave home unassisted Fidencio Ford MD Feb 09, 2017 11:10
--- NOTE | 2017-02-09 11:20 | HHI.DS ---
Discharge Summary Admission Date Feb 07, 2017 at 18:44 Discharge Date: Feb 09, 2017 Admitting Diagnosis wound dehiscence of skin, fascia intact Procedures vac placement CBC/BMP: 02/07/175 02/07/171824 Significant Findings Laboratory Tests Test 02/07/17 18:25 Hemoglobin 11.4 GM/DL (11.6-15.3) Mean Corpuscular Hemoglobin 26.9 PG (27.0-34.0) Mean Corpuscular Hemoglobin Concent 31.8 % (32.0-36.0) Monocytes (%) (Auto) 8.4 % (0.0-8.0) Eosinophils (%) (Auto) 6.8 % (0.0-4.0) Eosinophils # (Auto) 0.6 TH/MM3 (0-0.4) Random Glucose 136 MG/DL (74-106) Calcium Level 8.1 MG/DL (8.5-10.1) Pt Condition on Discharge: Good Discharge Disposition: Discharge Home Discharge Instructions DIET: Follow Instructions for: As Tolerated, No Restrictions Activities you can perform: Regular-No Restrictions, See Additionl Instruction Activities to Avoid: Lifting/Bending, Bathing Other Activity Instructions: no heavy lifting, ok to shower no bath tub Fidencio Ford MD Feb 09, 2017 11:20
[2017-02-09 11:59] VITALS: BP 121/57; PULSE 68; RESP 20; TEMP 98.4; O2SAT 95
[2017-02-09] MEDS: ACETAMINOPHEN/HYDROcodone 325 MG/5 MG TAB PO PRN (14:46)
--- NOTE | 2017-02-10 08:18 | MR ---
cc: RASHAUN VILLAR M.D. DATE 02/07/2017 PREOPERATIVE DIAGNOSIS Superficial wound disruption status post ventral incisional hernia repair with spontaneous drainage of large seroma. POSTOPERATIVE DIAGNOSIS Superficial wound disruption status post ventral incisional hernia repair with spontaneous drainage of large seroma. PROCEDURE PERFORMED Vac placement. SURGEON Rashaun Villar MD ANESTHESIA None COMPLICATIONS None INDICATIONS Ms. Brewer is a pleasant 66-year-old patient of Dr. Fidencio Ford who underwent abdominal wall reconstruction on 01/20/2017 for a large incisional hernia. She had a retrorectus mesh placed by Dr. Ford and Dr. Gonzalez. The patient was doing well until this evening when she was getting on the toilet and her wound opened up in the central portion and a large amount of serosanguineous fluid came out. She called 9-1-1 and was brought to the ER. I saw her in the ER and examined her. The fascia appeared to be intact in the mesh was brought retrorectus. I could palpate sutures and therefore I explained her that most likely this was disruption of a large subcutaneous seroma which is likely secondary to her flaps for her abdominoplasty. I explained to her that we needed to place a Vac in order to suck out the seroma fluid and limit the possibility of contamination. She was agreeable. DETAILS The patient remained in the emergency department. The anterior abdominal wall was prepped with Betadine and alcohol. A Vac sponge was carefully inserted in a sterile technique with sterile gloves into the subcutaneous pocket where the seroma was located. The dressings were then sterilely applied to the abdominal wall. The Vac was then hooked up to -125 suction. When we did this, the seroma cavity completely collapsed down a small amount of seroma fluid came out and the Vac had good suction. The patient tolerated suture without any pain whatsoever. She will be admitted for observation and we will set up home health care for her to get Vac therapy and Vac changes on Thursday, Thursday and Thursday. MD CARRIE Ray/DENI /7:02 PM /8:05 AM
== END 2017-02-09 22:26 | disposition home or self-care (01) ==
LOC: NEPE 17:43 → NEDA 18:44 → NEPGCP 21:10
PROVIDERS: ADMIT Surgery Trauma Surgery; ATTEND Surgery Trauma Surgery
DX: T81.30XA Disruption of wound, unspecified, initial encounter (principal); I10 Essential (primary) hypertension; E11.9 Type 2 diabetes mellitus without complications; E78.00 Pure hypercholesterolemia, unspecified; I25.10 Atherosclerotic heart disease of native coronary artery without angina pectoris; K21.9 Gastro-esophageal reflux disease without esophagitis
CPT/HCPCS: 74177; 80048; 85025; 94150; 96360; 96361; 96372; 99285; G0378; J1650; J7120; Q9967; Q9963